=== PATIENT | male | born 2000 | race Two or more races ===

== ENCOUNTER 2018-12-04 18:54 | Emergency (ER) | payer MEDICAID, OTHER ==
[~2018-12-04] VITALS: Ht 172.7 cm; Wt 68.0 kg
[2018-12-04] MEDS ORDERED: ACETAMINOPHEN 500 MG TAB PO ONE (21:15)
[2018-12-04] MEDS ORDERED: IBUPROFEN 600 MG TAB PO ONE (21:15)
[2018-12-04 21:25] VITALS: BP 115/70
== END 2018-12-04 21:46 | disposition home or self-care (01) ==
LOC: ER 18:54
DX: M24.811 Other specific joint derangements of right shoulder, not elsewhere classified (principal)
CPT/HCPCS: 73030

== ENCOUNTER 2023-07-15 08:08 | Emergency (ER) | payer MEDICAID ==
[~2023-07-15] VITALS: Ht 170.2 cm; Wt 89.0 kg
[2023-07-15 08:53] VITALS: BP 137/79; PULSE 64; RESP 16; TEMP 98.1; O2SAT 97
[2023-07-15] MEDS ORDERED: DexAMETHasone SOD PHOS 10MG/1ML VIAL INJ IM ONE (10:15)
[2023-07-15] MEDS ORDERED: KETOROLAC TROMETH 30 MG/ML 1ML VIAL IM ONE (10:15)
[2023-07-15] MEDS ORDERED: PROM1SOL4 PO (10:18)
[2023-07-15] MEDS ORDERED: BENZ100C97 PO (10:18)
[2023-07-15] MEDS ORDERED: PROMETHAZINE W/CODEINE 5 ML ORAL SYRUP PO ONE (10:30)
== END 2023-07-15 10:26 | disposition home or self-care (01) ==
LOC: ER 08:08
DX: B34.9 Viral infection, unspecified (principal)
CPT/HCPCS: 96372; 99284; J1100; J1885

== ENCOUNTER 2023-07-25 13:59 | Emergency (ER) | payer MEDICAID ==
[~2023-07-25] VITALS: Ht 172.7 cm; Wt 82.3 kg
[~2023-07-25 13:59] MED LIST: BENZ100C97 PO; PROM1SOL4 PO
[2023-07-25 15:36] VITALS: BP 124/87; PULSE 80; RESP 18; TEMP 97.6; O2SAT 98
[2023-07-25] MEDS ORDERED: PROM1SOL4 PO (15:39)
[2023-07-25] MEDS ORDERED: ALBU108A5 IN (15:39)
== END 2023-07-25 15:53 | disposition home or self-care (01) ==
LOC: ER 13:59
DX: J20.9 Acute bronchitis, unspecified (principal)
CPT/HCPCS: 71045

== ENCOUNTER 2023-08-13 11:52 | Emergency (ER) | payer MEDICAID ==
[~2023-08-13] VITALS: Ht 170.2 cm; Wt 83.0 kg
[~2023-08-13 11:52] MED LIST changes: +ALBU108A5 IN
[2023-08-13 13:51] VITALS: BP 101/69; PULSE 78; RESP 18; TEMP 97.8; O2SAT 98
[2023-08-13 14:14] LABS: COVID19 ANTIGEN SOFIA FIA NEGATIVE (NEGATIVE); Rapid Influenza A Negative (Negative); Rapid Influenza B Negative (Negative)
[2023-08-13] MEDS ORDERED: AUG875T PO (15:49)
== END 2023-08-13 15:49 | disposition home or self-care (01) ==
LOC: ER 11:52
DX: B34.9 Viral infection, unspecified (principal); R07.89 Other chest pain; Z20.822 Contact with and (suspected) exposure to COVID-19
CPT/HCPCS: 36415; 71045; 87426; 87804

== ENCOUNTER 2024-04-26 02:31 | Emergency (ER) | payer MEDICAID ==
[~2024-04-26] VITALS: Ht 172.7 cm; Wt 68.3 kg
[~2024-04-26 02:31] MED LIST changes: +AUG875T PO
[2024-04-26] MEDS: SODIUM CHLORIDE 0.9% 1,000 ML IV ONE (03:00)
[2024-04-26 03:30] VITALS: PULSE 66; RESP 21; TEMP 98.3; O2SAT 98
[2024-04-26] MEDS: ONDANSETRON HCL 4 MG/2 ML VIAL IV ONE (03:30)
[2024-04-26] MEDS: MORPHINE SULFATE 4 MG/ML SYR/VIAL IV ONE (03:31)
[2024-04-26] MEDS: PROPOFOL 10 MG/ML 20 ML IV ONE (03:57)
[2024-04-26 04:45] VITALS: BP 125/79; PULSE 56; RESP 16; O2SAT 99
== END 2024-04-26 05:57 | disposition home or self-care (01) ==
LOC: ER 02:31
DX: M24.411 Recurrent dislocation, right shoulder (principal); F17.210 Nicotine dependence, cigarettes, uncomplicated; Z98.890 Other specified postprocedural states; Z79.899 Other long term (current) drug therapy
CPT/HCPCS: 23650; 73020; 96361; 96374; 96375; 99152; 99153; 99285; J2270; J2405; J2704; J7030

== ENCOUNTER 2024-12-17 05:36 | Emergency (ER) | payer MEDICAID ==
[~2024-12-17] VITALS: Ht 170.2 cm; Wt 77.3 kg
[2024-12-17] MEDS: SODIUM CHLORIDE 0.9% 1,000 ML IV ONE (06:07)
[2024-12-17] MEDS: ONDANSETRON HCL 4 MG/2 ML VIAL IV ONE (06:07)
[2024-12-17] MEDS: MORPHINE SULFATE INJ 2 MG/ml SYRG IV ONE (06:08)
[2024-12-17] MEDS: PROPOFOL 10 MG/ML 20 ML IV ONE (06:15)
[2024-12-17 06:20] VITALS: PULSE 58; RESP 17; O2SAT 96
--- NOTE | 2024-12-17 06:25 | ED.PDOC ---
Musculoskeletal HPI Comments 24 year old male presents to the ED with a chief complaint of RT shoulder pain onset today (12/17/24) about 20 minutes prior to ED arrival. Patient states he was sleeping, dislocated RT shoulder, was not able to reduce at home. He states he has dislocated RT shoulder over 20 times, about 5 times this week, was able to reduce at home. He currently rates pain 10/10. Denies any PMHx as well as injury, fall, headache, dizziness, chest pain, nausea, vomiting, diarrhea, fevers, chills. No other symptoms or modifying factors present at this time. Chief Complaint: Upper Extremity Time Seen by MD: 06:00 Primary Care Provider: VICKEY Stephens Notes: Medications, Allergies Allergies: Coded Allergies: NO KNOWN ALLERGIES (Unverified , 12/04/18) Home Meds Active Scripts Benzonatate (Benzonatate) 100 Mg Cap, 100 MG PO TID for 10 Days, #30 CAP 0 Refills Prov:AUSTEN INMAN [employer] 08/13/23 Amoxicillin & Pot Clavulanate (AUGMENTIN TABLET) 875 Mg Tb, 875 MG PO BID for 7 Days, #14 TAB 0 Refills Prov:AUSTEN INMAN [employer] 08/13/23 Albuterol Sulfate (Albuterol Sulfate Hfa) 108 Mcg/Act Aer, 108 MCG IN TID, #90 AER Prov:LOW VALLECILLO 07/25/23 Promethazine-Dm (Promethazine Dm 6.25-15 mg/5Ml) 1 Keo Keo, 10 KEO PO TID, #180 ML Prov:LOW VALLECILLO 07/25/23 Benzonatate (Benzonatate) 100 Mg Cap, 100 MG PO TID for 10 Days, #30 CAP 0 Refills Prov:AUSTEN INMAN [employer] 07/15/23 Promethazine-Dm (Promethazine Dm 6.25-15 mg/5Ml) 1 Keo Keo, 5 ML PO TIDPRN PRN for 10 Days, #150 ML 0 Refills Prov:AUSTEN INMAN [employer] 07/15/23 Information Source: Patient Mode of Arrival: Ambulatory Location: Right Extremity Location: Shoulder Timing: Hours Prehospital treatment: None Severity: Moderate Pain: Moderate Mechanism: Spontaneous Circumstances: Spontaneous Onset of Symptoms: After Trauma Symptoms: Pain DVT Risk Factors: NONE History of: Shoulder Dislocation Associated signs and symptoms: Shoulder pain Past Medical History PAST MEDICAL HISTORY: Denies Surgical History: Denies all surgeries Family History Family History: Reviewed,noncontributory to illness Social History Smoker: Cigarettes Alcohol: Denies ETOH Use Drugs: Denies Drug Use Lives In: Home Constitutional: denies: chills, diaphoresis, fatigue, fever, malaise, sweats, weakness, others EENTM: denies: blurred vision, double vision, ear bleeding, ear discharge, ear drainage, ear pain, ear ringing, eye pain, eye redness, hearing loss, mouth pain, mouth swelling, nasal discharge, nose bleeding, nose congestion, nose pain, photophobia, tearing, throat pain, throat swelling, voice changes, others Respiratory: denies: cough, hemoptysis, orthopnea, SOB at rest, shortness of breath, SOB with excertion, stridor, wheezing, others Cardiovascular: denies: chest pain, dizzy spells, diaphoresis, Dyspnea on exertion, edema, irregular heart beat, left arm pain, lightheadedness, pal pitations, PND, syncope, others Gastrointestinal: denies: abdomen distended, abdominal pain, blood streaked bowels, constipated, diarrhea, dysphagia, difficulty swallowing, hematemesis, melena, nausea, poor appetite, poor fluid intake, rectal bleeding, rectal pain, vomiting, others Genitourinary: denies: burning, dysuria, flank pain, frequency, hematuria, incontinence, penile discharge, penile sore, pain, testicle pain, testicle swelling, urgency, others Neurological: denies: dizziness, fainting, headache, left sided numbness, left sided weakness, numbness, paresthesia, pre-existing deficit, right sided numbness, right sided weakness, seizure, speech problems, tingling, tremors, weakness, others Musculoskeletal: reports: others (RT shoulder pain); denies: back pain, gout, joint pain, joint swelling, muscle pain, muscle stiffness, neck pain Integumetry: denies: bruises, change in color, change in hair/nails, dryness, laceration, lesions, lumps, rash, wounds, others Allergic/Immunocompromised: denies: Difficulty Healing, Frequent Infections, Hives, Itching, others Hematologic/Lymphatic: denies: anemia, blood clots, easy bleeding, easy bruising, swollen glands, others Endocrine: denies: excessive hunger, excessive sweating, excessive thirst, excessive urination, flushing, intolerance to cold, intolerance to heat, unexpla ined weight gain, unexplained weight loss, others Psychiatric: denies: anxiety, bipolar disorder, depression, hopeless, panic disorder, schizophrenia, sleepless, suicidal, others All Other Systems: Reviewed and Negative Physical Exam General Appearance: No Apparent Distress, Normal HEENT: Normal ENT Inspection, Pharynx Normal, TMs Normal Neck: Full Range of Motion, Non-Tender, Normal, Normal Inspection Respiratory: Chest Non-Tender, Lungs Clear, No Accessory Muscle Use, No Respiratory Distress, Normal Breath Sounds Cardiovascular: No Edema, No JVD, No Murmur, No Gallop, Normal Peripheral Pulses, Regular Rate/Rhythm Breast Exam: Deferred Gastrointestinal: No Organomegaly, Non Tender, No Pulsatile Mass, Normal Bowel Sounds, Soft Genitalia: Deferred Pelvic: Deferred Rectal: Deferred Extremities: No calf tenderness, Normal capillary refill, No pedal edema Musculoskeletal : Location: Right Extremity Location: Shoulder (obvious deformity noted) Apperance: Normal Neurologic: Alert, timber rider II-XII nml as Tested, No Motor Deficits, Normal Affect, Normal Mood, No Sensory Deficits Cerebellar Function: Normal Reflexes: Normal Skin: Dry, Normal Color, Warm Lymphatic: No Adenopathy Was a procedure done? Was a procedure done?: Yes Sedation Sedation?: Yes Informed consent obtained: Yes Sedation start time: 06:22 Sedation end time: 06:55 Sedation total time: 33 Reduction Indication: Dislocation Sedation: Consents obtained Intra-articular anesthetic deonte: Yes Post-reduction x-ray show: Reduction, Good Alignment Informed consent obtained: Yes Risks/benefits/alt described: Yes Differential Diagnosis EXT Differential Diagnosis: Fracture, Sprain, Dislocation X-Ray, Labs, Meds, VS Vital Signs Date Time Temp Pulse Resp B/P (MAP) Pulse Ox O2 Delivery O2 Flow Rate FiO2 12/17/24 08:08 52 13 113/91 12/17/24 07:30 52 13 100 Nasal Cannula* 2 28 12/17/24 07:30 97.8 52 13 113/91 (98) 100 97.8 12/17/24 06:25 51 18 99 2.0 65 18 98 51 99 12/17/24 06:20 58 17 96 Room Air* 0 21 12/17/24 06:08 58 17 118/70 12/17/24 06:00 98.8 58 17 118/70 (86) 96 98.8 12/17/24 05:44 98.8 74 18 117/72 (87) 98 98.8 Current Medications Medications (Trade) Dose Ordered Sig/Ana Route Start Time Stop Time Status Last Admin Morphine Sulfate 4 mg ONCE ONCE IV 12/17/24 06:00 12/17/24 06:01 DC 12/17/24 06:08 Ondansetron HCl (Zofran) 4 mg ONCE ONCE IV 12/17/24 06:00 12/17/24 06:01 DC 12/17/24 06:07 Sodium Chloride 1,000 ml @ 1,000 mls/hr Q1H ONCE IV 12/17/24 06:00 12/17/24 06:59 DC 12/17/24 06:07 Propofol (Diprivan) 200 mg ONCE ONCE IV 12/17/24 06:10 12/17/24 06:11 DC 12/17/24 06:15 [place] [address] Ph: [phone] DIAGNOSTIC IMAGING Diagnostic Imaging Report : [id number] Signed PATIENT: TARA COTA IIICCT: [id number] UNIT: [id number] : 2000 LOC: ER ROOM / BED: / AGE / SEX: 24 / M ADM STATUS: REG ER SERVICE ORDERING PHYSICIAN: TACO STOUT MD PROCEDURE(s): RSHD2 - R SHOULDER 2+ VIEW XRAY REASON: REDUCED ORDER NUMBER(s): [id number], ACCESSION NUMBER(s): [id number] EXAM: XR Right Shoulder, 1 View CLINICAL INDICATION: Pain TECHNIQUE: One view of the right shoulder. COMPARISON: Earlier today FINDINGS: BONES/JOINTS: Unremarkable. No acute fracture. No dislocation. SOFT TISSUES: Status post successful reduction. IMPRESSION: No acute fracture. ATED BY: ILENE GARCIA MD DICTATED DATE/TIME: 12/17/24656 SIGNED BY: ILENE GARCIA MD SIGNED DATE/TIME: 12/17/2457 CC: [facility] [id number] [place] [address] Ph: [phone] DIAGNOSTIC IMAGING Diagnostic Imaging Report : [id number] Signed PATIENT: TARA COTA IIICCT: [id number] UNIT: [id number] : 2000 LOC: ER ROOM / BED: / AGE / SEX: 24 / M ADM STATUS: REG ER SERVICE ORDERING PHYSICIAN: HERMILO CUNNINGHAM MD PROCEDURE(s): RSHD - R SHOULDER 1V XRAY REASON: post reduction ORDER NUMBER(s): [id number], ACCESSION NUMBER(s): [id number] XY R SHOULDER 1V XRAY INDICATION: post reduction TECHNICAL DATA: 1 views were obtained of the right shoulder. COMPARISON: XY R SHOULDER 2+ VIEW XRAY on DOS: 12/17/24, XY R SHOULDER 1V XRAY on DOS: 04/26/24, XY R SHOULDER 1V XRAY on DOS: 04/26/24 FINDINGS: There is no fracture or focal bone abnormality. The glenohumeral joint is normally maintained. The acromioclavicular joint appears normal. The humeral head is not high riding. Adjacent soft tissues are within normal limits. IMPRESSION: No acute fracture or dislocation of the right shoulder. ATED BY: JAMES MATHIS MD DICTATED DATE/TIME: 12/17/24 0759 SIGNED BY: JAMES MATHIS MD SIGNED DATE/TIME: 12/17/24 0759 CC: Time of 1ST Reevaluation: 06:30 Reevaluation 1ST: Unchanged Patient Education/Counseling: Diagnosis, Treatment, Prognosis Family Education/Counseling: No Family Present Departure 1 Departure Time of Disposition: 08:47 (Patient had a shoulder dislocation that was reduced. We will discharge patient with outpatient follow up) Impression: Primary Impression: Recurrent dislocation, right shoulder Disposition: 01 HOME / SELF CARE / HOMELESS Condition: Stable Referrals: ZAYDA LANG MD Additional Instructions: You dislocated your shoulder. It was reduced in the ER. You were placed in a sling for comfort. For pain you can take the followinam: Ibuprofen 400mg with food Noon: Acetaminophen 1000mg 4pm: Ibuprofen 400mg with food 8pm: Acetaminophen 1000mg You were referred to an orthopedic surgeon to ensure you are healing well. Please call for an appointment within one week. If your symptoms worsen or you have any other concerns then please return to the ER. Discharged With: Self Critical Care Note Critical Care Time?: No Stability Stability form required: No I personally scribed for HERMILO CUNNINGHAM MD ([email or web address]) on 12/17/24 at 06:25. Electronically submitted by Christen Sams ([email or web address]). I personally scribed for HERMILO CUNNINGHAM MD ([email or web address]) on 12/17/24 at 06:38. Electronically submitted by Christen Sams ([email or web address]). I personally scribed for HERMILO CUNNINGHAM MD ([email or web address]) on 12/17/24 at 08:41. Electronically submitted by Christen Sams ([email or web address]). HERMILO CUNNINGHAM MD Dec 17, 2024 06:25
--- NOTE | 2024-12-17 07:00 | DVH ---
EXAM: XR Right Shoulder, 1 View CLINICAL INDICATION: Pain TECHNIQUE: One view of the right shoulder. COMPARISON: Earlier today FINDINGS: BONES/JOINTS: Unremarkable. No acute fracture. No dislocation. SOFT TISSUES: Status post successful reduction. IMPRESSION: No acute fracture.
[2024-12-17 07:30] VITALS: PULSE 52; RESP 13; TEMP 97.8; O2SAT 100
--- NOTE | 2024-12-17 08:01 | DVH ---
XY R SHOULDER 1V XRAY INDICATION: post reduction TECHNICAL DATA: 1 views were obtained of the right shoulder. COMPARISON: XY R SHOULDER 2+ VIEW XRAY on DOS: 12/17/24, XY R SHOULDER 1V XRAY on DOS: 04/26/24, XY R SHOULDER 1V XRAY on DOS: 04/26/24 FINDINGS: There is no fracture or focal bone abnormality. The glenohumeral joint is normally maintained. The ac romioclavicular joint appears normal. The humeral head is not high riding. Adjacent soft tissues are within normal limits. IMPRESSION: No acute fracture or dislocation of the right shoulder.
[2024-12-17 08:08] VITALS: BP 113/91; PULSE 52; RESP 13
== END 2024-12-17 09:14 | disposition home or self-care (01) ==
LOC: ER 05:38
DX: M24.411 Recurrent dislocation, right shoulder (principal); F17.210 Nicotine dependence, cigarettes, uncomplicated; Z79.899 Other long term (current) drug therapy
CPT/HCPCS: 23650; 73020; 73030; 96361; 96374; 96375; 99152; 99153; 99285; J2270; J2405; J2704; J7030

== ENCOUNTER 2024-12-17 17:09 | Emergency (ER) | payer MEDICAID ==
[~2024-12-17] VITALS: Ht 167.6 cm; Wt 68.0 kg
--- NOTE | 2024-12-17 17:30 | ED.PDOC ---
Musculoskeletal HPI Comments HPI: This is a 24 year old male ROSEMARIE presenting to the ED with chief complaint of right shoulder dislocation. Patient reports that he was just seen this morning for dislocation of his right shoulder, having it put back in place under sedation, however, at home it had dislocated again and he is unable to self reduce it. Patient relays that he has had over 30 dislocations in the last 2 months with 5 dislocations happening this week alone, but some times he is able to self reduce it. Patient states he had an Orthopedic surgery scheduled, but he had been incarcerated, delaying his surgery. Patient denies any numbness, weakness, tingling, fall, or injury at this time. Patient received fentanyl by EMS prior to arrival. Initial Vitals BP: 130/91 Past Medical history: Chronic dislocations of right shoulder Past Surgical history: Denies Medications: None Social History: Denies smoking, ETOH, and drug use. Allergies: NKDA HPI: Poor Historian. REVIEW OF SYSTEMS: CONSTITUTIONAL: Denies acute: fever, diaphoresis, chills, HEAD: Denies acute: headache, photophobia Eyes: Denies acute: Double vision, vision loss, eye pain, eye discharge. EARS: Denies acute: tinnitus, hearing loss, ear discharge, ear pain, THROAT: Denies acute: sore throat, swelling, difficulty swallowing , pain with swallowing, change in voice. NECK: Denies acute: neck pain, neck swelling, stiff neck. HEART: Denies acute : chest pain, palpitations, LUNGS: Denies acute: SOB, wheezing, cough, hemoptysis ABDOMEN: Denies acute: abdominal pain, Nausea, Vomiting, diarrhea, melena , hematemesis, hematochezia SKIN: Denies acute: rash, redness, lesions, itchiness. EXTREMITIES: Denies acute: calf pain, numbness, tingling, weakness, Denies acute: Low back pain. Neuro: Denies acute: focal neurological deficit, motor or sensory focal neurological deficit, tremors, seizure like activity, confusion, dizziness, change in mental status, loss of bowel or bladder function, cauda equina like symptoms. : Denies acute: dysuria, hematuria, flank pain, increase in urinary frequency. PSYCH: Denies acute: hallucination, suicidal ideation, homicidal ideation. PHYSICAL EXAM: General: ----ptum-ce-[id number]----acute distress, awake and alert. Head: normocephalic, atraumatic. Neck: supple, trachea is midline, no swelling. Throat: Normal phonation. Eyes:, no erythema, no purulent discharge, no proptosis, no icterus. Heart: regular rate, regular rhythm, no significant murmur appreciated. Lungs: no apparent respiratory distress, Able to speak in full sentences. No wheezing, no rhonchi, no crackles. No stridors Clear to auscultation bilaterally. Abdomen: non tender to palpation, non distended, soft, no guarding, no rebound, + bowel sounds. Neuro: Awake, Alert, oriented to name, self, situation, follows commands GCS=15. Speech is normal. Skin: no petechia, no purpura, no cyanosis, non-pale, not jaundice. Lower extremities: --no - Pitting edema no deformity, no focal swelling, no calf TTP. Makes eye contact. Right shoulder looks dislocated. Decreased range of motion of the right shoulder right upper extremity secondary to pain. Patient is neurovascularly intact in the affected extremity. Radial pulses palpable. Good gold layer muscle. Face: no apparent facial droop. ED COURSE: DISCLAIMER: This medical document was created using an electronic medical record system with voice recognition software and computerized dictation system. Although this document has been carefully reviewed, there might still be some phonetic and t ypographical errors. Occasional wrong-word or "sound-alike" substitutions may have occurred due to the inherent limitations of voice recognition software. These areas are purely typographical due to imperfections of the software programs and do not reflect any compromise in the patient's medical care. Please read the chart carefully and recognize, using context, where these substitutions have occurred. Time Seen by MD: 17:28 Primary Care Provider: VICKEY Reviewed Notes: Medications, Allergies Allergies: Coded Allergies: NO KNOWN ALLERGIES (Unverified , 12/04/18) Home Meds Active Scripts Benzonatate (Benzonatate) 100 Mg Cap, 100 MG PO TID for 10 Days, #30 CAP 0 Refills Prov:AUSTEN INMAN [employer] 08/13/23 Amoxicillin & Pot Clavulanate (AUGMENTIN TABLET) 875 Mg Tb, 875 MG PO BID for 7 Days, #14 TAB 0 Refills Prov:JACQUE INMANFady Ford NP 08/13/23 Albuterol Sulfate (Albuterol Sulfate Hfa) 108 Mcg/Act Aer, 108 MCG IN TID, #90 AER Prov:HARMAN VALLECILLOAntonia HOFF 07/25/23 Promethazine-Dm (Promethazine Dm 6.25-15 mg/5Ml) 1 Rhonda Rhonda, 10 RHONDA PO TID, #180 ML Prov:LOW VALLECILLO KAVYA 07/25/23 Benzonatate (Benzonatate) 100 Mg Cap, 100 MG PO TID for 10 Days, #30 CAP 0 Refills Prov:JACQUE INMANFady Ford [employer] 07/15/23 Promethazine-Dm (Promethazine Dm 6.25-15 mg/5Ml) 1 Rhonda Rhonda, 5 ML PO TIDPRN PRN for 10 Days, #150 ML 0 Refills Prov:JACQUE INMANFady Ford [employer] 07/15/23 Information Source: Patient, Emergency Med Personnel Mode of Arrival: EMS Location: Right Was a procedure done? Was a procedure done?: Yes Sedation Sedation?: Yes Informed consent obtained: Yes Sedation start time: 19:20 Sedation end time: 19:27 Sedation total time: 7 minutes Sedation provider statement: 100mcg of Fentanyl used with supplemental O2 provided via NC. Reduction Indication: Dislocation Sedation: Consents obtained, Sedation as ordered Post-reduction x-ray show: Reduction, Good Alignment Informed consent obtained: Yes Risks/benefits/alt described: Yes Notes Patient was placed in a shoulder sling after reduction. Patient remained neurovascularly intact in the affected extremity. Differential Diagnosis EXT Differential Diagnosis: Deep Vein Thrombosis, Compartment Syndrome, Fracture, Dislocation, DJD, Contusion, Neurovascular injury, Bursitis X-Ray, Labs, Meds, VS Vital Signs Date Time Temp Pulse Resp B/P (MAP) Pulse Ox O2 Delivery O2 Flow Rate FiO2 12/17/24 20:00 48 12/17/24 19:26 98.8 58 24 123/95 (104) 99 98.8 12/17/24 19:20 98.8 58 30 137/103 (114) 100 98.8 12/17/24 18:18 98.0 62 16 116/75 (89) 98 98.0 12/17/24 18:05 130/91 12/17/24 17:30 Room Air* 0 21 Lab Test 12/17/24 20:22 Range/Units Urine Opiates Screen Neg NEGATIVE Urine Fentanyl Screen Pos NEGATIVE Urine Barbiturates Screen Neg NEGATIVE Urine Phencyclidine Screen Neg NEGATIVE Urine Amphetamines Screen Pos NEGATIVE Urine Benzodiazepines Screen Neg NEGATIVE Urine Cocaine Screen Neg NEGATIVE Urine Cannabinoids Screen Pos NEGATIVE Current Medications Medications (Trade) Dose Ordered Sig/Ana Route Start Time Stop Time Status Last Admin Sodium Chloride 1,000 ml @ 1,000 mls/hr Q1H ONCE IV 12/17/24 18:00 12/17/24 18:59 DC 12/17/24 18:00 Fentanyl Citrate 100 mcg ONCE ONCE IV 12/17/24 18:00 12/17/24 18:01 DC 12/17/24 18:05 Sodium Chloride 1,000 ml @ 1,000 mls/hr Q1H ONCE IV 12/17/24 18:00 12/17/24 18:59 DC 12/17/24 18:00 [place] [address] Ph: [phone] DIAGNOSTIC IMAGING Diagnostic Imaging Report : [id number] Signed PATIENT: TARA COTA III ACCT: [id number] UNIT: [id number] : 2000 LOC: ER ROOM / BED: / AGE / SEX: 24 / M ADM STATUS: REG ER SERVICE 1449 ORDERING PHYSICIAN: AFRICA CHENG DO PROCEDURE(s): RSHD2 - R SHOULDER 2+ VIEW XRAY REASON: shoulder pain dislocation ORDER NUMBER(s): [id number], ACCESSION NUMBER(s): [id number] EXAM: XY R SHOULDER 2+ VIEW XRAY REASON FOR EXAM: shoulder pain dislocation TECHNIQUE: AP and Y-views of the right shoulder are submitted for review. COMPARISON: XY R SHOULDER 1V XRAY on DOS: 12/17/24, XY R SHOULDER 2+ VIEW XRAY on DOS: 12/17/24, XY R SHOULDER 1V XRAY on DOS: 04/26/24, XY R SHOULDER 1V XRAY on DOS: 04/26/24, XY R SHOULDER 2+ VIEW XRAY on DOS: 10/04/23 FINDINGS: The bones demonstrate normal mineralization. There is anterior inferior dislocation of the humeral head with respect of the glenoid fossa. No acute fracture is identified. There is no widening of the acromioclavicular maritza int. The soft tissues are grossly unremarkable. IMPRESSION: Anterior inferior dislocation of the humeral head. ATED BY: ALAN OLVERA MD DICTATED DATE/TIME: 12/17/241834 SIGNED BY: ALAN OLVERA MD SIGNED DATE/TIME: 12/17/241834 CC: [place] [address] Ph: [phone] DIAGNOSTIC IMAGING Diagnostic Imaging Report : [id number] Signed PATIENT: TARA COTA III ACCT: [id number] UNIT: [id number] : 2000 LOC: ER ROOM / BED: / AGE / SEX: 24 / M ADM STATUS: REG ER SERVICE 26 ORDERING PHYSICIAN: AFRICA CHENG DO PROCEDURE(s): CXR1 - CHEST XRAY 1 VIEW REASON: R SHOULDER POST REDUCTION ORDER NUMBER(s): [id number], ACCESSION NUMBER(s): [id number] CHEST RADIOGRAPH Indication: R SHOULDER POST REDUCTION Technique: Single frontal view of the chest was obtained Comparison: XY CHEST XRAY 1 VIEW on DOS: 08/13/23, XY CHEST PORTABLE on DOS: 07/25/23 FINDINGS: Lines and Tubes: None Lungs: No focal consolidation. Pleura: No effusion. No pneumothorax. Cardiomediastinal contours: Unremarkable Bones: No acute osseous abnormality. Right shoulder not well seen. IMPRESSION: 1. No acute cardiopulmonary disease. 2. Satisfactory postreduction film no fracture. ATED BY: ISIDRO PETTIT Jr., DO DICTATED DATE/TIME: 12/17/241958 SIGNED BY: ISIDRO PETTIT Jr., DO SIGNED DATE/TIME: 12/17/241958 CC: [address] [address] Ph: [phone] DIAGNOSTIC IMAGING Diagnostic Imaging Report : [id number] Signed PATIENT: TARA COTA III ACCT: [id number] UNIT: [id number] : 2000 LOC: ER ROOM / BED: / AGE / SEX: 24 / M ADM STATUS: REG ER SERVICE 57 ORDERING PHYSICIAN: AFRICA CHENG DO PROCEDURE(s): RSHD - R SHOULDER 1V XRAY REASON: R SHOULDER POST REDUCTION ORDER NUMBER(s): [id number], ACCESSION NUMBER(s): [id number] CLINICAL INDICATION: R SHOULDER POST REDUCTION TECHNIQUE: Right shoulder postreduction. 3 radiographic views of the right shoulder were obtained. Comparison: XY R SHOULDER 2+ VIEW XRAY on DOS: 12/17/24, XY R SHOULDER 1V XRAY on DOS: 12/17/24, XY R SHOULDER 2+ VIEW XRAY on DOS: 12/17/24 FINDINGS/IMPRESSION: Satisfactory bony alignment. No acute fractures. If symptoms persist recommend MRI to evaluate for rotator cuff tear. The visualized joint space is well maintained. The alignment is anatomical. There is no radiopaque foreign body. HS:Y ATED BY: ISIDRO PETTIT Jr., DO DICTATED DATE/TIME: 12/17/242051 SIGNED BY: ISIDRO PETTIT Jr., SIGNED DATE/TIME: 12/17/242051 CC: Time of 1ST Reevaluation: 18:27 Reevaluation 1ST: Unchanged Time of 2ND Reevaluation: 21:23 Reevaluation 2ND: Resolved Patient Education/Counseling: Diagnosis, Treatment Family Education/Counseling: No Family Present Comments Patient presented with the above HPI.---right shoulder pain/dislocation---workup was initiated. patient was found with the above mentioned diagnosis. Patient was in the ER earlier this morning treated by another provider for the same complaint. Patient has no fall or trauma but he did dislocate his shoulder while showering today. the following medications were ordered: please refer to order lists of meds and tests obtained by myself Dr. Cheng. Patient ED course and VS have been stabilized. Patient has been reassessed in the ED and remained in a stable condition. Pertinent incidental findings were discussed with the patient and/or family. Patient/family voices understanding and is agreeable with plan. Patient has been observed in the ED adequate length of time to insure improvement/stability. Escalation of care considered: Consideration of escalation to observation or admission Successful reduction was performed with fentanyl and oxygen and fluids. Patient tolerated the procedure well. Patient was placed in a sling and given discharge instructions. Patient will be discharged in the care of his mother. Patient was DISCHARGED home in a stable condition. All the reports of any imaging studies that were ordered by myself were reviewed by myself. Departure 1 Departure Time of Disposition: 20:22 Impression: Primary Impression: Recurrent dislocation, right shoulder Additional Impression: Methamphetamine abuse Disposition: HOME / SELF CARE / HOMELESS Condition: Stable Additional Instructions: Additional instructions: You MUST follow-up with your primary care/family doctor in 1 to 2 days. If you are unable to see your primary care/family doctor, please return to our emergency room for re-assessment and re-evaluation in 1 to 2 days. Return to the emergency room here in our facility or to the nearest ER [facility] if your symptoms change or worsen. CONSULTATIONS: you MUST Follow-up for consultation as soon as possible with: orthopedic doctor in 1-2 days. Please call for appointment You MUST call the consultants office yourself to make an appointment. You may need to arrange that through your insurance and/or your primary/family doctor. If you are unable to see the hr shared services consultant in 1 to 2 days, you must return to our emergency room (or any other ER of your choice) for re-assessment and re- evaluation. Adequate fluid hydration. Avoid drugs and methamphetamine and marijuana Sedation precautions Discharged With: Self Critical Care Note Critical Care Time?: No I personally scribed for AFRICA CHENG DO ([email or web address]) on 12/17/24 at 17:30. Electronically submitted by Epifanio Dykes ([email or web address]). I personally scribed for AFRICA CHENG DO ([email or web address]) on 12/17/24 at 18:31. Electronically submitted by Epifanio Dykes ([email or web address]). I personally scribed for AFRICA CHENG DO ([email or web address]) on 12/17/24 at 19:27. Electronically submitted by Epifanio Dykes ([email or web address]). I personally scribed for AFRICA CHENG DO ([email or web address]) on 12/17/24 at 19:28. Electronically submitted by Epifanio Dykes ([email or web address]). AFRICA CHENG DO Dec 17, 2024 17:30
[2024-12-17] MEDS: SODIUM CHLORIDE 0.9% 1,000 ML IV ONE ×2 (18:00)
[2024-12-17] MEDS: fentaNYL CITRATE 100 MCG/2 ML VL IV ONE (18:05)
--- NOTE | 2024-12-17 18:37 | DVH ---
EXAM: XY R SHOULDER 2+ VIEW XRAY REASON FOR EXAM: shoulder pain dislocation TECHNIQUE: AP and Y-views of the right shoulder are submitted for review. COMPARISON: XY R SHOULDER 1V XRAY on DOS: 12/17/24, XY R SHOULDER 2+ VIEW XRAY on DOS: 12/17/24, XY R S HOULDER 1V XRAY on DOS: 04/26/24, XY R SHOULDER 1V XRAY on DOS: 04/26/24, XY R SHOULDER 2+ VIEW XRAY on DOS: 10/04/23 FINDINGS: The bones demonstrate normal mineralization. There is anterior inferior dislocation of the humeral head with respect of the glenoid fossa. No acute fracture is identified. There is no widening of the acromioclavicular joint. The soft tissues are grossly unremarkable. IMPRESSION: Anterior inferior dislocation of the humeral head.
[2024-12-17 19:26] VITALS: BP 123/95; RESP 24; TEMP 98.8; O2SAT 99
[2024-12-17 20:00] VITALS: PULSE 48
--- NOTE | 2024-12-17 20:01 | DVH ---
CHEST RADIOGRAPH Indication: R SHOULDER POST REDUCTION Technique: Single frontal view of the chest was obtained Comparison: XY CHEST XRAY 1 VIEW on DOS: 08/13/23, XY CHEST PORTABLE on DOS: 07/25/23 FINDINGS: Lines and Tubes: None Lungs: No focal consolidation. Pleura: No effusion. No pneumothorax. Cardiomediastinal contours: Unremarkable Bones: No acute osseous abnormality. Right shoulder not well seen. IMPRESSION: 1. No acute cardiopulmonary disease. 2. Satisfactory postreduction film no fracture.
[2024-12-17 20:47] LABS: Opiate Scree,Urine Neg (NEGATIVE)
[2024-12-17 20:48] LABS: Cannabinoid Screen, Urine Pos (NEGATIVE)
[2024-12-17 20:53] LABS: Amphetamine Screen, Urine Pos (NEGATIVE); Barbiturate Scree,Urine Neg (NEGATIVE); Phencyclidine Screen, Urine Neg (NEGATIVE)
[2024-12-17 20:54] LABS: Benzodiazephine Screen, Urine Neg (NEGATIVE); Cocaine Screen, Urine Neg (NEGATIVE)
--- NOTE | 2024-12-17 20:55 | DVH ---
CLINICAL INDICATION: R SHOULDER POST REDUCTION TECHNIQUE: Right shoulder postreduction. 3 radiographic views of the right shoulder were obtained. Comparison: XY R SHOULDER 2+ VIEW XRAY on DOS: 12/17/24, XY R SHOULDER 1V XRAY on DOS: 12/17/24, XY R S HOULDER 2+ VIEW XRAY on DOS: 12/17/24 FINDINGS/IMPRESSION: Satisfactory bony alignment. No acute fractures. If symptoms persist recommend MRI to evaluate for r otator cuff tear. The visualized joint space is well maintained. The alignment is anatomical. There is no radiopaque foreign body. HS:Y
== END 2024-12-17 21:43 | disposition home or self-care (01) ==
LOC: EDUNIT# 17:09 → EDBD 17:09 → ER 17:11
DX: S43.084A Other dislocation of right shoulder joint, initial encounter (principal); M24.411 Recurrent dislocation, right shoulder; F15.10 Other stimulant abuse, uncomplicated; Z79.899 Other long term (current) drug therapy; X58.XXXA Exposure to other specified factors, initial encounter; Y93.89 Activity, other specified; Y92.89 Other specified places as the place of occurrence of the external cause; Y99.8 Other external cause status
CPT/HCPCS: 23650; 71045; 73020; 73030; 80307; 96360; 99285; J3010; J7030